=== PATIENT | female | born 1950 | race Caucasian/White ===

== ENCOUNTER 2024-03-16 09:32 | Day surgery (SDC) | payer OTHER ==
[2024-03-16] MEDS ORDERED: ONDANSETRON 4 MG/2 ML VIAL ONE (11:48)
[2024-03-16] MEDS: ONDANSETRON 4 MG/2 ML VIAL IVPUSH ONE (12:04)
[2024-03-16 12:32] LABS: BASO % 0.3 % (0-2.0); EOS % 1.9 % (0-4.5); HEMATOCRIT 41.9 % (32.4-45.2); HEMOGLOBIN 14.7 GM/dL (10.7-15.3); LYMPH % 34.9 % (8-40); MCH 30.6 pg (25.7-33.7); MEAN CELL VOLUME 87.5 fl (80-96); MEAN PLT VOLUME 8.8 fl (7.5-11.1); MONO % 7.8 % (3.8-10.2); NEUT % 55.1 % (42.8-82.8); PLATELET COUNT 316 10^3/uL (134-434); RBC 4.79 M/mm3 (3.60-5.2); RDW 13.1 % (11.6-15.6); URINE APPEARANCE CLEAR; URINE BILIRUBIN NEGATIVE (NEGATIVE); URINE COLOR YELLOW; URINE GLUCOSE (UA) 3+ (NEGATIVE); URINE KETONE NEGATIVE (NEGATIVE); URINE LEUK ESTERASE NEGATIVE (NEGATIVE); URINE NITRITE NEGATIVE (NEGATIVE); URINE PROTEIN NEGATIVE (NEGATIVE); URINE UROBILINOGEN 0.2 mg/dL (0.2-1.0); WHITE BLOOD COUNT 9.9 K/mm3 (4.0-10.0)
[2024-03-16 13:03] LABS: ALBUMIN 4.3 g/dl (3.4-5.0); CALCIUM 10.1 mg/dL (8.5-10.1)
[2024-03-16 13:04] LABS: BLOOD UREA NITROGEN 8.1 mg/dL (7-18)
[2024-03-16 13:06] LABS: CREATININE 0.8 mg/dL (0.55-1.3)
[2024-03-16 13:08] LABS: BILIRUBIN,TOTAL 0.5 mg/dL (0.2-1); TOT PROT 8.1 g/dl (6.4-8.2)
[2024-03-16] MEDS ORDERED: MAG HYDROX/AL HYDROX/SIMETH 30 ML UNIT-DOSE CUP ONE (13:36)
[2024-03-16] MEDS ORDERED: FAMOTIDINE 10 MG TABLET ONE (13:36)
[2024-03-16] MEDS: MAG HYDROX/AL HYDROX/SIMETH 30 ML UNIT-DOSE CUP PO ONE (13:40)
[2024-03-16] MEDS: FAMOTIDINE 10 MG TABLET PO ONE (13:40)
[2024-03-16] MEDS ORDERED: ONDANSETRON 4 MG/2 ML VIAL IVPUSH PRN (17:13)
[2024-03-16] MEDS ORDERED: PIPERACILLIN/TAZOB 4.5 GM 4.5 GM/100 ML BAG IVPB ONE (17:24)
[2024-03-16] MEDS: SODIUM CHLORIDE 0.9% 500 ML INFUS.BAG IV ONE (17:33)
[2024-03-16] MEDS: PIPERACILLIN/TAZOB 4.5 GM 4.5 GM in DEXTROSE 5%-WATER 100 ML IVPB ONE (17:33)
[2024-03-16] MEDS: D5-1/2NS+20 MEQ KCL - 20 MEQ/1,000 ML INFUS.BAG IV SCH (19:25)
[2024-03-16 19:41] LABS: INR 1.04 (0.83-1.09)
[2024-03-16 19:44] LABS: ACTIVATED PTT 35.6 SECONDS (25.2-36.5)
[2024-03-16] MEDS: ACETAMINOPHEN 1000 MG/100 ML BAG IVPB PRN (20:35)
[2024-03-16] MEDS: INSULIN ASPART SLIDING SCALE (NOVOLOG) 1 VIAL SQ SCH (21:17)
[2024-03-16 22:54] VITALS: BMI 30.4
[2024-03-17] MEDS: CEFTRIAXONE 1 G/50 ML PREMIX 50 ML IVPB SCH (09:53)
[2024-03-17] MEDS: ENALAPRIL MALEATE 5 MG TABLET PO SCH (09:54)
[2024-03-17 10:07] LABS: BASO % 0.3 % (0-2.0); EOS % 3.1 % (0-4.5); HEMATOCRIT 40.1 % (32.4-45.2); HEMOGLOBIN 13.3 GM/dL (10.7-15.3); LYMPH % 42.9 % (8-40); MCH 29.6 pg (25.7-33.7); MCHC 33.2 g/dl (32.0-36.0); MEAN CELL VOLUME 88.9 fl (80-96); MEAN PLT VOLUME 8.9 fl (7.5-11.1); MONO % 8.1 % (3.8-10.2); NEUT % 45.6 % (42.8-82.8); PLATELET COUNT 261 10^3/uL (134-434); RBC 4.51 M/mm3 (3.60-5.2); RDW 13.1 % (11.6-15.6)
[2024-03-17] MEDS: ACETAMINOPHEN 500 MG TABLET (FP) PO PRN (10:10)
[2024-03-17 10:37] LABS: POTASSIUM 4.8 mmol/L (3.5-5.1)
[2024-03-17 11:03] LABS: CALCIUM 9.7 mg/dL (8.5-10.1)
[2024-03-17 11:05] LABS: ALBUMIN 3.9 g/dl (3.4-5.0); CREATININE 0.7 mg/dL (0.55-1.3)
[2024-03-17 11:06] LABS: BLOOD UREA NITROGEN 7.5 mg/dL (7-18)
[2024-03-17 11:08] LABS: BILIRUBIN,TOTAL 0.6 mg/dL (0.2-1)
[2024-03-17 11:09] LABS: TOT PROT 7.2 g/dl (6.4-8.2)
[2024-03-17] MEDS ORDERED: SUCCINYLCHOLINE CHLORIDE 200 MG/10 ML SYRINGE ONE (13:33)
[2024-03-17] MEDS ORDERED: PROPOFOL 20 ML ONE (13:34)
[2024-03-17] MEDS ORDERED: ROCURONIUM BROMIDE 50 MG/5 ML SYRINGE ONE (13:48)
[2024-03-17] MEDS: BUPIVACAINE HCL/PF 0.25% (2.5MG/ML) 10 ML VIAL IJ ONE (13:58)
[2024-03-17] MEDS ORDERED: BUPIVACAINE HCL/PF 0.25% (2.5MG/ML) 10 ML VIAL ONE (14:12)
[2024-03-17] MEDS ORDERED: ONDANSETRON 4 MG/2 ML VIAL IVPUSH PRN ×2 (15:10→16:38)
[2024-03-17] MEDS: LACTATED RINGERS SOLUTION 1,000 ML IV SCH ×2 (15:41→17:50)
[2024-03-17] MEDS ORDERED: ACETAMINOPHEN 1000 MG/100 ML BAG IVPB PRN (16:38)
[2024-03-17] MEDS: oxyCODONE HCL 5 MG TABLET PO PRN (18:17)
[2024-03-17] MEDS: ACETAMINOPHEN 325 MG TABLET (FP) PO PRN (18:19)
[2024-03-17 20:34] VITALS: RESP 18
[2024-03-17] MEDS: INSULIN ASPART SLIDING SCALE (NOVOLOG) 1 VIAL SQ SCH (22:11)
[2024-03-18] MEDS: ENALAPRIL MALEATE 5 MG TABLET PO SCH (09:08)
[2024-03-18] MEDS: POLYETHYLENE GLYCOL (HEALTHYLAX) 3350 17 GM PACKET PO SCH (14:19)
[2024-03-19] MEDS: ACETAMINOPHEN 500 MG TABLET (FP) PO PRN (02:52)
[2024-03-19 15:08] VITALS: BP 101/53; PULSE 75; TEMP 98.4
== END 2024-03-19 16:30 | disposition home or self-care (01) ==
LOC: JER 09:32 → JERBED 16:20 → INTOOBSV 16:20 → UNDOADMOB 16:20 → JERBED 17:28 → J6S 20:16 → JASUSAT 03-17 14:10 → J6S 03-17 14:16 → JASUSAT 03-19 16:30
PROVIDERS: ATTEND Internal Medicine
PROC: 0FT44ZZ Resection of Gallbladder, Percutaneous Endoscopic Approach (ICD-10-PCS; principal; 2024-03-17 13:57)
DX: K80.10 Calculus of gallbladder with chronic cholecystitis without obstruction (principal); I10 Essential (primary) hypertension; E11.9 Type 2 diabetes mellitus without complications
CPT/HCPCS: 0241U-QW; 36415; 71046-TC-FY; 74176-TC; 76705-TC; 80053; 81003; 82962; 83690; 84484; 85025; 85610; 85730; 86850; 86900; 86901; 87086; 88304-TC; 93005; 93010; 94760; 99285-25; J0131

== ENCOUNTER 2024-12-22 13:49 | Emergency (ER) | payer OTHER ==
[2024-12-22 14:02] VITALS: TEMP 97.7; BMI 34.0
[2024-12-22 15:01] LABS: ABSOLUTE IMMATURE GRANULOCYTES 0.02 x10^3/uL (0.0-0.031); BASOPHILS # 0.04 x10^3/uL (0.01-0.08); EOSINOPHIL % 2.3 % (0.7-5.8); EOSINOPHILS # 0.18 x10^3/uL (0.04-0.36); MCHC 32.4 g/dl (32.2-35.5); MEAN CELL VOLUME 90.5 fl (79.4-94.8); MEAN PLT VOLUME 10.9 fl (9.4-12.3); MONOCYTE # 0.68 x10^3/uL (0.24-0.86); MONOCYTE % 8.5 % (4.7-12.5); RDW 12.3 % (12.4-16.6)
[2024-12-22 15:26] LABS: GLUCOSE,RANDOM 154.0 mg/dL (74-106); TOT PROT 7.3 g/dl (6.4-8.2)
[2024-12-22 15:27] LABS: CO2 25.0 mmol/L (21-32)
[2024-12-22 15:28] LABS: ALK PHOS 95.0 U/L (40-150)
[2024-12-22 15:31] LABS: SGOT/AST 16.0 U/L (5-34); SGPT/ALT 13.0 U/L (0-55)
[2024-12-22 15:32] LABS: CREATININE 0.56 mg/dL (0.55-1.3)
[2024-12-22 15:50] VITALS: BP 160/78; PULSE 56; RESP 14
[2024-12-22 15:50] LABS: HIV INTERPRETATION NEGATIVE (NEGATIVE)
[2024-12-22 17:25] LABS: HCV DIAGNOSTIC IN-HOUSE W/RFLX NON-REACTIVE (NONREACTIVE)
== END 2024-12-22 16:02 | disposition home or self-care (01) ==
LOC: JER 13:49
DX: I16.1 Hypertensive emergency (principal); I10 Essential (primary) hypertension; R42 Dizziness and giddiness
CPT/HCPCS: 36415; 71045-TC-FY; 80053; 84484; 85025; 86803; 87389; 99284-25